=== PATIENT | male | born 1990 | race Caucasian/White ===

== ENCOUNTER 2022-04-25 22:17 | Emergency (ER) | payer OTHER ==
[~2022-04-25] VITALS: Ht 188 cm; Wt 154.2 kg
[2022-04-26] MEDS ORDERED: CYCL10 PO (00:33)
== END 2022-04-26 00:45 | disposition home or self-care (01) ==
LOC: ER 22:17
DX: M54.2 Cervicalgia (principal); M54.50 Low back pain, unspecified; M25.511 Pain in right shoulder; V49.9XXA Car occupant (driver) (passenger) injured in unspecified traffic accident, initial encounter
CPT/HCPCS: 71045; 72125; 72128; 72131; 72170; 73030; A9270; J1885